=== PATIENT | female | born 1955 | race American Indian/Alaskan Native ===

== ENCOUNTER 2017-01-13 12:48 | Outpatient (CLI) | payer MEDICARE | END 2017-01-13 12:49 | disposition home or self-care (01) | LOC: VAS 12:48 | PROVIDERS: ATTEND Podiatrist Foot & Ankle Surgery | DX: M79.661 Pain in right lower leg (principal); M79.662 Pain in left lower leg; M79.89 Other specified soft tissue disorders ==

== ENCOUNTER 2017-07-18 09:00 | Outpatient (CLI) | payer MEDICARE ==
[2017-07-18 09:23] LABS: Basophils # (Auto) 0.1 K/mm3 (0.0-0.1); Basophils % (Auto) 1.1 % (0.0-1.8); Eosinophils # (Auto) 0.1 K/mm3 (0.0-0.4); Eosinophils % (Auto) 2.3 % (0.0-4.3); Hematocrit 35.5 % (30.3-42.9); Hemoglobin 11.3 gm/dl (10.1-14.3); Lymphocytes # (Auto) 1.8 K/mm3 (1.2-5.4); Lymphocytes % (Auto) 33.5 % (13.4-35.0); Mean Corpuscular HGB Conc 32 % (30-34); Monocytes # (Auto) 0.3 K/mm3 (0.0-0.8); Monocytes % (Auto) 6.4 % (0.0-7.3); Platelet Count 286 K/mm3 (140-440); Red Blood Count 5.13 M/mm3 (3.65-5.03); Red Cell Distribution Width 15.7 % (13.2-15.2)
[2017-07-18 09:27] LABS: Bilirubin,Urine NEG (Negative); Blood,Urine NEG (Negative); Color,Urine Yellow (Yellow); Protein,Urine <15 mg/dL mg/dL (Negative); Urobilinogen,Urine < 2.0 mg/dL (<2.0)
[2017-07-18 09:46] LABS: Mean Corpuscular Hemoglobin 22 pg (28-32); Mean Corpuscular Volume 69 fl (79-97)
[2017-07-18 10:04] LABS: Albumin 4.2 g/dL (3.9-5); BUN/Creatinine Ratio 21; Blood Urea Nitrogen 23 mg/dL (7-17); Calcium 9.5 mg/dL (8.4-10.2); Hemolysis Index 14
[2017-07-18 16:13] LABS: Creatinine,Urine 128.2 mg/dL (0.1-20.0); Protein/Creatinine Ratio,Urine 0.09
== END 2017-07-18 09:01 | disposition home or self-care (01) ==
LOC: LAB 09:00
PROVIDERS: ATTEND Internal Medicine Nephrology
DX: I12.9 Hypertensive chronic kidney disease with stage 1 through stage 4 chronic kidney disease, or unspecified chronic kidney disease (principal); N18.2 Chronic kidney disease, stage 2 (mild); D50.9 Iron deficiency anemia, unspecified; E78.00 Pure hypercholesterolemia, unspecified; J45.909 Unspecified asthma, uncomplicated; G47.30 Sleep apnea, unspecified
CPT/HCPCS: 36415; 80048; 81001; 82040; 82570; 83970; 84100; 84156; 85025

== ENCOUNTER 2017-09-02 09:45 | Outpatient (CLI) | payer MEDICARE ==
[2017-09-02 10:21] LABS: BUN/Creatinine Ratio 24; Blood Urea Nitrogen 24 mg/dL (7-17); Calcium 9.9 mg/dL (8.4-10.2); Hemolysis Index 0
== END 2017-09-02 09:46 | disposition home or self-care (01) ==
LOC: LAB 09:45
PROVIDERS: ATTEND Internal Medicine Nephrology
DX: I12.9 Hypertensive chronic kidney disease with stage 1 through stage 4 chronic kidney disease, or unspecified chronic kidney disease (principal); E11.22 Type 2 diabetes mellitus with diabetic chronic kidney disease; N18.3 Chronic kidney disease, stage 3 (moderate); E78.00 Pure hypercholesterolemia, unspecified; G47.30 Sleep apnea, unspecified; K21.9 Gastro-esophageal reflux disease without esophagitis; Z82.49 Family history of ischemic heart disease and other diseases of the circulatory system; Z83.3 Family history of diabetes mellitus
CPT/HCPCS: 36415; 80048

== ENCOUNTER 2018-04-28 07:30 | Outpatient (CLI) | payer MEDICARE ==
[2018-04-28 08:07] LABS: Basophils # (Auto) 0.1 K/mm3 (0.0-0.1); Basophils % (Auto) 0.9 % (0.0-1.8); Eosinophils # (Auto) 0.1 K/mm3 (0.0-0.4); Eosinophils % (Auto) 1.9 % (0.0-4.3); Hematocrit 33.4 % (30.3-42.9); Hemoglobin 10.7 gm/dl (10.1-14.3); Lymphocytes # (Auto) 1.8 K/mm3 (1.2-5.4); Lymphocytes % (Auto) 24.5 % (13.4-35.0); Mean Corpuscular HGB Conc 32 % (30-34); Mean Corpuscular Volume 70 fl (79-97); Monocytes # (Auto) 0.5 K/mm3 (0.0-0.8); Monocytes % (Auto) 6.9 % (0.0-7.3); Platelet Count 310 K/mm3 (140-440); Red Blood Count 4.75 M/mm3 (3.65-5.03); Red Cell Distribution Width 15.8 % (13.2-15.2)
[2018-04-28 08:16] LABS: Bacteria,Urine 1+ /HPF (Negative); Bilirubin,Urine NEG (Negative); Blood,Urine NEG (Negative); Color,Urine Yellow (Yellow); Mucus,Urine FEW /HPF; Protein,Urine <15 mg/dL mg/dL (Negative); Urobilinogen,Urine < 2.0 mg/dL (<2.0)
[2018-04-28 09:00] LABS: Albumin 4.1 g/dL (3.9-5); BUN/Creatinine Ratio 25; Blood Urea Nitrogen 28 mg/dL (7-17); Calcium 9.6 mg/dL (8.4-10.2); Hemolysis Index 0
[2018-04-28 10:52] LABS: Creatinine,Urine 122.4 mg/dL (0.1-20.0); Protein/Creatinine Ratio,Urine 0.07
== END 2018-04-28 07:31 | disposition home or self-care (01) ==
LOC: LAB 07:30
PROVIDERS: ATTEND Internal Medicine Nephrology
DX: I12.9 Hypertensive chronic kidney disease with stage 1 through stage 4 chronic kidney disease, or unspecified chronic kidney disease (principal); N18.3 Chronic kidney disease, stage 3 (moderate); E78.00 Pure hypercholesterolemia, unspecified; E66.9 Obesity, unspecified; K21.9 Gastro-esophageal reflux disease without esophagitis; E11.9 Type 2 diabetes mellitus without complications; M19.90 Unspecified osteoarthritis, unspecified site
CPT/HCPCS: 36415; 80048; 81001; 82040; 82570; 83970; 84100; 84156; 85025

== ENCOUNTER 2018-07-13 20:38 | Emergency (ER) | payer MEDICARE ==
[2018-07-13 21:30] VITALS: BP 166/96
--- NOTE | 2018-07-13 21:33 | Emergency Department Report ---
Blank Doc - Documentation Documentation: This is a 63-year-old female that presents with right hip and lower back pain after getting out of the car. This initial assessment/diagnostic orders/clinical plan/treatment(s) is/are subject to change based on patient's health status, clinical progression and re- assessment by fellow clinical providers in the ED. Further treatment and workup at subsequent clinical providers discretion. Patient/guardians urged not to elope from the ED as their condition may be serious if not clinically assessed and managed. Initial orders include: 1- Patient sent to [facility] for further evaluation and treatment 2- xray
--- NOTE | 2018-07-13 22:28 | XRay Report ---
PROCEDURE: XR SPINE LUMBOSACRAL 2-3V TECHNIQUE: Lumbar spine radiographs, views. HISTORY: low back pain COMPARISONS: December 26, 2016. FINDINGS: Alignment: There is mild degree spondylolisthesis at L4-5 measuring about 4 mm. . Mild degree dextro scoliosis is noted. Vertebral body heights/Disk spaces: Multilevel height is normal. Narrowing of intervertebral disc sp haley with vacuum phenomenon and marginal osteophyte formation is noted at L5-S1 . Fracture(s): None . Facets: Normal . Bone mineralization: Normal . IMPRESSION: Degenerative disc disease at L5-S1 Mild degree spondylolisthesis at L4-5 not significantly changed in the interval. This document is electronically signed by Omkar Rizo MD., Jul 13 2018 10:26:25 PM ET
--- NOTE | 2018-07-13 22:31 | XRay Report ---
PROCEDURE: XR HIP 2-3V RT TECHNIQUE: PROCEDURE: XR HIP 2-3V RT TECHNIQUE: Right hip radiographs, 2 views. HISTORY: right hip pain COMPARISONS: None FINDINGS: Fracture (s) and/or Dislocation(s): None Joint space(s): Normal Soft tissues: Normal Bone mineralization: Normal Foreign bodies: None IMPRESSION: No acute abnormality HISTORY: right hip pain COMPARISONS: FINDINGS: IMPRESSION: . This document is electronically signed by Omkar Rizo MD., Jul 13 2018 10:29:27 PM ET
[2018-07-14] MEDS ORDERED: MORPHINE IM ONE (00:54)
--- NOTE | 2018-07-14 01:01 | Emergency Department Report ---
ED Back Pain/Injury HPI - General Chief Complaint: Extremity Injury, Lower Stated Complaint: BACK PAIN Time Seen by Provider: 07/13/18 21:32 Source: patient Limitations: No Limitations - History of Present Illness Initial Comments: Pt is a 63 yo female who presents to the ED with c/o right sided back pain and right hip pain that began two days ago. she states that she was getting out of the truck two days ago and stepped wrong and felt a twisting sensation in the right side of her back and right hip. she denies falling to the ground. the patient has a hx of chronic back issues with a back surgery. she denies any numbness, weakness, or bowel/bladder incontinence. she has a PMHx of DM and CVA. she states she cannot have NSAIDs due to having one kidney. She states her ortho spine doctor is Dr. Heredia. - Related Data Home Medications Medication Instructions Recorded Confirmed Last Taken Baclofen 10 mg PO Q8HR PRN 07/05/13 02/16/14 02/09/14 10mg Bumetanide 1 mg PO BID 07/05/13 02/16/14 02/15/14 1mg Cilostazol 100 mg PO BID 07/05/13 02/16/14 02/15/14 100mg Insulin Glargine,Hum.rec.anlog 14 units SQ HS 07/05/13 02/16/14 02/15/14 [Lantus] 14units Labetalol [Labetalol 200mg TAB] 200 mg PO BID 07/05/13 02/16/14 02/15/14 200mg Lidocaine 5% Patch [Lidoderm 5%] 1 patch TRANSDERMA Q12HR PRN 07/05/13 02/16/14 01/24/14 1 patch Olmesartan/Hydrochlorothiazide 1 tab PO DAILY 07/05/13 02/16/14 02/15/14 [Benicar HCT 40-12.5 mg] 1 tab Rosuvastatin (Nf) [Crestor] 20 mg PO HS 07/05/13 02/16/14 02/15/14 20mg Spironolactone 50 mg PO DAILY PRN 07/05/13 02/16/14 02/15/14 50mg Vit D3-Vit K/Berberine/Hops 1 tab PO DAILY 07/05/13 02/16/14 02/11/14 [Ostera Tablet] 1 tab cloNIDine [Catapres] 0.2 mg PO DAILY PRN 07/05/13 02/16/14 02/15/14 .2mg Dexlansoprazole [Dexilant] 1 cap PO DAILY 12/29/13 02/16/14 02/15/14 1 cap Insulin Regular, Human [Humulin R] 5 units SC QAM 12/29/13 02/16/14 02/15/14 5 units Insulin Regular, Human [Humulin R] 7 units SC AC 12/29/13 02/16/14 02/15/14 7 units Insulin Regular, Human [Humulin R] 9 units SC AC 12/29/13 02/16/14 02/15/14 9 units Linaclotide [Linzess] 1 cap PO DAILY 12/29/13 02/16/14 02/14/14 1 cap amLODIPine [Norvasc] 1 tab PO DAILY 12/29/13 02/16/14 02/15/14 10mg metFORMIN [Glucophage] 1 tab PO BID 12/29/13 02/16/14 02/15/14 500mg Amitriptyline HCl 50 mg PO HS 02/16/14 02/16/14 02/15/14 50mg Gabapentin 300 mg PO DAILY 02/16/14 02/16/14 02/15/14 300mg Previous Rx's Medication Instructions Recorded Last Taken Type HYDROcodone/APAP 5-325 [[place] 1 each PO Q6HR PRN #15 tablet 03/28/15 Unknown Rx 5-325 mg TAB] traMADol [Ultram] 50 mg PO Q6HR PRN #15 tablet 12/26/16 Unknown Rx Acetaminophen [Tylenol] 650 mg PO Q6HR PRN #20 tablet 07/14/18 Unknown Rx Cyclobenzaprine [Flexeril] 10 mg PO QHS PRN #12 tablet 07/14/18 Unknown Rx Allergies Allergy/AdvReac Type Severity Reaction Status Date / Time ibuprofen [From Motrin] AdvReac Nausea/ Verified 02/16/14 08:37 UPSET STOMACH NSAIDS (Non-Steroidal AdvReac Unknown Verified 12/29/13 14:36 Anti-Inflamma ED Review of Systems ROS: Stated complaint: BACK PAIN Other details as noted in HPI Comment: All other systems reviewed and negative ED Past Medical Hx - Past Medical History Hx Hypertension: Yes Hx CVA: Yes Hx Heart Attack/AMI: No Hx Diabetes: Yes Hx GERD: Yes Hx Renal Disease: Yes (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 Renal artery stenosis) Hx Arthritis: Yes Hx Headaches / Migraines: Yes Hx Asthma: No (uses inhaler for allergies. last used 2 months ago. not dx with asthma) Hx COPD: No Hx HIV: No Additional medical history: sleep apnea, uses CPAP. 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 left knee surgery. left arm surgery. tubal ligation, - Social History Smoking Status: Never Smoker Substance Use Type: None - Medications Home Medications: Home Medications Medication Instructions Recorded Confirmed Last Taken Type Baclofen 10 mg PO Q8HR PRN 07/05/13 02/16/14 02/09/14 History 10mg Bumetanide 1 mg PO BID 07/05/13 02/16/14 02/15/14 History 1mg Cilostazol 100 mg PO BID 07/05/13 02/16/14 02/15/14 History 100mg Insulin Glargine,Hum.rec.anlog 14 units SQ HS 07/05/13 02/16/14 02/15/14 History [Lantus] 14units Labetalol [Labetalol 200mg TAB] 200 mg PO BID 07/05/13 02/16/14 02/15/14 History 200mg Lidocaine 5% Patch [Lidoderm 5%] 1 patch TRANSDERMA Q12HR PRN 07/05/13 02/16/14 01/24/14 History 1 patch Olmesartan/Hydrochlorothiazide 1 tab PO DAILY 07/05/13 02/16/14 02/15/14 History [Benicar HCT 40-12.5 mg] 1 tab Rosuvastatin (Nf) [Crestor] 20 mg PO HS 07/05/13 02/16/14 02/15/14 History 20mg Spironolactone 50 mg PO DAILY PRN 07/05/13 02/16/14 02/15/14 History 50mg Vit D3-Vit K/Berberine/Hops 1 tab PO DAILY 07/05/13 02/16/14 02/11/14 History [Ostera Tablet] 1 tab cloNIDine [Catapres] 0.2 mg PO DAILY PRN 07/05/13 02/16/14 02/15/14 History .2mg Dexlansoprazole [Dexilant] 1 cap PO DAILY 12/29/13 02/16/14 02/15/14 History 1 cap Insulin Regular, Human [Humulin R] 5 units SC QAM 12/29/13 02/16/14 02/15/14 History 5 units Insulin Regular, Human [Humulin R] 7 units SC AC 12/29/13 02/16/14 02/15/14 History 7 units Insulin Regular, Human [Humulin R] 9 units SC AC 12/29/13 02/16/14 02/15/14 History 9 units Linaclotide [Linzess] 1 cap PO DAILY 12/29/13 02/16/14 02/14/14 History 1 cap amLODIPine [Norvasc] 1 tab PO DAILY 12/29/13 02/16/14 02/15/14 History 10mg metFORMIN [Glucophage] 1 tab PO BID 12/29/13 02/16/14 02/15/14 History 500mg Amitriptyline HCl 50 mg PO HS 02/16/14 02/16/14 02/15/14 History 50mg Gabapentin 300 mg PO DAILY 02/16/14 02/16/14 02/15/14 History 300mg HYDROcodone/APAP 5-325 [[place] 1 each PO Q6HR PRN #15 tablet 03/28/15 Unknown Rx 5-325 mg TAB] traMADol [Ultram] 50 mg PO Q6HR PRN #15 tablet 12/26/16 Unknown Rx Acetaminophen [Tylenol] 650 mg PO Q6HR PRN #20 tablet 07/14/18 Unknown Rx Cyclobenzaprine [Flexeril] 10 mg PO QHS PRN #12 tablet 07/14/18 Unknown Rx ED Physical Exam - General Limitations: No Limitations General appearance: alert, in no apparent distress - Head Head exam: Present: atraumatic, normocephalic - ENT ENT exam: Present: mucous membranes moist - Neck Neck exam: Present: normal inspection, full ROM. Absent: tenderness - Respiratory Respiratory exam: Present: normal lung sounds bilaterally. Absent: respiratory distress, wheezes, rales, rhonchi, stridor, chest wall tenderness, accessory muscle use, decreased breath sounds, prolonged expiratory - Cardiovascular Cardiovascular Exam: Present: regular rate, normal rhythm, normal heart sounds. Absent: systolic murmur, diastolic murmur, rubs, gallop - Extremities Exam Extremities exam: Present: other (mild TTP of the right lateral hip, no defo rmity, no crepitus, neurovascularly intact, limited ROM secondary to pain ) - Back Exam Back exam: Present: normal inspection, full ROM, paraspinal tenderness (right sided lumbar paraspinal TTP, no midline C-spine, T-spine, or L-spine tenderness, no step offs, no deformities). Absent: vertebral tenderness - Neurological Exam Neurological exam: Present: alert, oriented X3, CN II-XII intact, other (5/5 strength in the BUE/BLE, sensation intact, equal car pick up driver strength, no focal neuro deficit ). Absent: motor sensory deficit - Psychiatric Psychiatric exam: Present: normal affect, normal mood - Skin Skin exam: Present: warm, dry, intact ED Course Vital Signs 07/13/18 07/14/18 20:42 01:42 Temperature 97.9 F Pulse Rate 94 H 68 Respiratory 18 Rate Blood Pressure 166/96 O2 Sat by Pulse 99 100 Oximetry ED Medical Decision Making - Radiology Data Radiology results: report reviewed PROCEDURE: XR SPINE LUMBOSACRAL 2-3V TECHNIQUE: Lumbar spine radiographs, views. HISTORY: low back pain COMPARISONS: December 26, 2016. FINDINGS: Alignment: There is mild degree spondylolisthesis at L4-5 measuring about 4 mm. . Mild degree dextroscoliosis is noted. Vertebral body heights/Disk spaces: Multilevel height is normal. Narrowing of intervertebral disc space with vacuum phenomenon and marginal osteophyte formation is noted at L5-S1 . Fracture(s): None . Facets: Normal . Bone mineralization: Normal . IMPRESSION: Degenerative disc disease at L5-S1 Mild degree spondylolisthesis at L4-5 not significantly changed in the interval. This document is electronically signed by Jasmyne Rizo MD., Jul 13 2018 10:26:25 PM ET Transcribed By: [facility] [place]ictated By: JASMYNE RIZO Electronically Authenticated By: JASMYNE RIZO Signed Date/Time: 07/13/18 222 PROCEDURE: XR HIP 2-3V RT TECHNIQUE: PROCEDURE: XR HIP 2-3V RT TECHNIQUE: Right hip radiographs, 2 views. HISTORY: right hip pain COMPARISONS: None FINDINGS: Fracture (s) and/or Dislocation(s): None Joint space(s): Normal Soft tissues: Normal Bone mineralization: Normal Foreign bodies: None IMPRESSION: No acute abnormality HISTORY: right hip pain COMPARISONS: FINDINGS: IMPRESSION: . This document is electronically signed by Jasmyne Rizo MD., Jul 13 2018 10:29:27 PM ET - Medical Decision Making Pt is a 63 yo female who presents to the ED with c/o right sided back pain and right hip pain that began two days ago. she states that she was getting out of the truck two days ago and stepped wrong and felt a twisting sensation in the right side of her back and right hip. she denies falling to the ground. the patient has a hx of chronic back issues with a back surgery. she denies any numbness, weakness, or bowel/bladder incontinence. she has a PMHx of DM and CVA. she states she cannot have NSAIDs due to having one kidney. She states her orth o spine doctor is Dr. Heredia. Degenerative disc disease at L5-S1 Mild degree spondylolisthesis at L4-5 not significantly changed in the interval. XR of the right hip no acute process. no midline tenderness on exam, no focal neuro deficit. pt treated for pain while in the ED, unable to give toradol due to one kidney status. pt given tylenol and muscle relaxer to use at home. discussed to only use muscle relaxer as needed and do not drive or operate heavy machinery. may use ice, rest, heat, epsom salt bath. return to the ed for any new or worsening symptoms. follow up with PCP in the next 2-3 days. Critical care attestation.: If time is entered above; I have spent that time in minutes in the direct care of this critically ill patient, excluding procedure time. ED Disposition Clinical Impression: Right hip pain Low back pain Qualifiers: Chronicity: chronic Back pain laterality: right Sciatica presence: without sciatica Qualified Code(s): M54.5 - Low back pain Disposition: TO HOME OR SELFCARE Is pt being admited?: No Does the pt Need Aspirin: No Condition: Stable Instructions: Arthralgia (ED), Back Pain (ED) Additional Instructions: Please follow up with your orthopedic doctor in the next 2-3 days. please follow up with your primary care doctor in the next 2-3 days. please take medication as prescribed. only take muscle relaxer as needed and do not drive or operate heavy machinery. return to the emergency room for any new or worsening symptoms. Prescriptions: Cyclobenzaprine [Flexeril] 10 mg PO QHS PRN #12 tablet PRN Reason: Muscle Spasm Acetaminophen [Tylenol] 650 mg PO Q6HR PRN #20 tablet PRN Reason: Pain Referrals: VENKATA CHACON [Other] - 2-3 Days JUAN JOSÉ HEREDIA MD [Staff Physician] - 2-3 Days Time of Disposition: 01:05 Print Language: MOH[place]
== END 2018-07-14 01:41 | disposition home or self-care (01) ==
LOC: ED 20:38
DX: M25.551 Pain in right hip (principal); M54.5 Low back pain; E11.9 Type 2 diabetes mellitus without complications; K21.9 Gastro-esophageal reflux disease without esophagitis; G43.909 Migraine, unspecified, not intractable, without status migrainosus; M19.90 Unspecified osteoarthritis, unspecified site; I10 Essential (primary) hypertension; G47.30 Sleep apnea, unspecified; Z98.51 Tubal ligation status; Z87.442 Personal history of urinary calculi; Z88.5 Allergy status to narcotic agent; Z88.7 Allergy status to serum and vaccine; Z79.4 Long term (current) use of insulin
CPT/HCPCS: 72100; 73502; 96372; 99283; J2270

== ENCOUNTER 2018-09-23 08:32 | Outpatient (CLI) | payer MEDICARE ==
[2018-09-23 09:07] LABS: Basophils % (Auto) 0.6 % (0.0-1.8); Eosinophils # (Auto) 0.2 K/mm3 (0.0-0.4); Hematocrit 35.1 % (30.3-42.9); Hemoglobin 11.6 gm/dl (10.1-14.3); Lymphocytes # (Auto) 2.7 K/mm3 (1.2-5.4); Mean Corpuscular HGB Conc 33 % (30-34); Mean Corpuscular Volume 70 fl (79-97); Monocytes # (Auto) 0.6 K/mm3 (0.0-0.8); Monocytes % (Auto) 8.1 % (0.0-7.3); Platelet Count 304 K/mm3 (140-440); Red Blood Count 5.02 M/mm3 (3.65-5.03); Red Cell Distribution Width 16.4 % (13.2-15.2)
[2018-09-23 09:20] LABS: Bilirubin,Urine NEG (Negative); Blood,Urine NEG (Negative); Color,Urine Yellow (Yellow); Protein,Urine <15 mg/dL mg/dL (Negative); Urobilinogen,Urine < 2.0 mg/dL (<2.0)
[2018-09-23 09:39] LABS: Albumin 4.5 g/dL (3.9-5); Calcium 9.8 mg/dL (8.4-10.2)
[2018-09-23 10:37] LABS: Creatinine,Urine 106.6 mg/dL (0.1-20.0); Microalbumin/Creatinine Ratio 11.2 ug/mg; Protein/Creatinine Ratio,Urine 0.08
== END 2018-09-23 08:33 | disposition home or self-care (01) ==
LOC: LAB 08:32
PROVIDERS: ATTEND Internal Medicine Nephrology
DX: I12.9 Hypertensive chronic kidney disease with stage 1 through stage 4 chronic kidney disease, or unspecified chronic kidney disease (principal); N18.3 Chronic kidney disease, stage 3 (moderate); E78.00 Pure hypercholesterolemia, unspecified; K21.9 Gastro-esophageal reflux disease without esophagitis; E11.9 Type 2 diabetes mellitus without complications
CPT/HCPCS: 36415; 80048; 81001; 82040; 82043; 82570; 83970; 84100; 84156; 85025

== ENCOUNTER 2018-11-06 08:16 | Outpatient (CLI) | payer MEDICARE ==
[2018-11-06 09:08] LABS: Albumin 3.9 g/dL (3.9-5); Calcium 9.6 mg/dL (8.4-10.2)
== END 2018-11-06 08:17 | disposition home or self-care (01) ==
LOC: LAB 08:16
DX: I12.9 Hypertensive chronic kidney disease with stage 1 through stage 4 chronic kidney disease, or unspecified chronic kidney disease (principal); E11.22 Type 2 diabetes mellitus with diabetic chronic kidney disease; N18.2 Chronic kidney disease, stage 2 (mild); E78.00 Pure hypercholesterolemia, unspecified; J45.909 Unspecified asthma, uncomplicated
CPT/HCPCS: 36415; 80048; 82040; 84100

== ENCOUNTER 2019-01-28 08:36 | Outpatient (CLI) | payer MEDICARE ==
[2019-01-28 09:24] LABS: Albumin 3.9 g/dL (3.9-5); BUN/Creatinine Ratio 22; Blood Urea Nitrogen 20 mg/dL (7-17); Calcium 9.1 mg/dL (8.4-10.2); Hemolysis Index 0
== END 2019-01-28 08:37 | disposition home or self-care (01) ==
LOC: LAB 08:36
PROVIDERS: ATTEND Physician Assistant
DX: I12.9 Hypertensive chronic kidney disease with stage 1 through stage 4 chronic kidney disease, or unspecified chronic kidney disease (principal); N18.2 Chronic kidney disease, stage 2 (mild); E78.5 Hyperlipidemia, unspecified; Z88.8 Allergy status to other drugs, medicaments and biological substances
CPT/HCPCS: 36415; 80048; 82040; 84100